=== PATIENT | male | born 1965 | race Caucasian/White ===

== ENCOUNTER 2020-06-07 23:42 | Emergency (ER) | payer MEDICARE, MEDICAID, SELFPAY ==
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
[2020-06-07 23:49] VITALS: BP 128/76; PULSE 70; RESP 16; TEMP 36.7; O2SAT 98; BMI 27.7
[2020-06-08] MEDS: Lidocaine HCl 2 % MPF 5 ML VIAL INFILTRATI (00:12)
== END 2020-06-08 00:25 | disposition home or self-care (01) ==
PROVIDERS: Emergency Provider Internal Medicine; PCP Internal Medicine
DX: S01.112A Laceration without foreign body of left eyelid and periocular area, initial encounter (principal); H57.12 Ocular pain, left eye; Y29.XXXA Contact with blunt object, undetermined intent, initial encounter; Y93.9 Activity, unspecified; Y92.9 Unspecified place or not applicable; Y99.9 Unspecified external cause status
CPT/HCPCS: 12013; 99284

== ENCOUNTER 2020-06-18 13:01 | Emergency (ER) | payer MEDICARE, MEDICAID, SELFPAY ==
[2020-06-18 13:18] VITALS: BP 124/73; PULSE 73; RESP 16; TEMP 36.4; O2SAT 100; BMI 31.8
--- NOTE | 2020-06-18 13:39 | ED_ITS ---
HPI - Wound/Laceration General Chief Complaint: Wound/Laceration Stated Complaint: SUTURE REMOVAL Time Seen by Provider: 06/18/20 13:38 History of Present Illness HPI narrative: Patient is here for suture removal after left eyebrow laceration sustained 10 days ago and sutured here He has no other complaint, no pain no redness no concern for wound infection Related Data Allergies Allergy/AdvReac Type Severity Reaction Status Date / Time No Known Allergies Allergy Verified 06/07/20 23:48 Review of Systems Review of Systems: No fever no chills no discharge from the wound no redness no body aches, no rash Yes all other systems are reviewed and are negative [facility] Past Medical History Attestation statement: The following information was validated with the patient. [facility] Narrative: No relevant medical history Source: nursing notes reviewed Social History Social History Smoking Status: Former smoker Advance Directives: No Advance Directives Information Provided: No Physical Exam Vital Signs: Vital Signs: Last Vital Signs Temp 97.6 F 06/18/20 13:18 Pulse 73 06/18/20 13:18 Resp 16 06/18/20 13:18 BP 124/73 06/18/20 13:18 Pulse Ox 100 06/18/20 13:18 Body Mass Index 31.8 Patient is A&O x3 comfortable facial exam shows [address] in left eyebrow with no surrounding erythema no swelling no tenderness no discharge no evidence of infection Neck is supple Respiratory no acute distress Extremities for range of motion x4 Neuro no focal deficit Course Course Course Narrative: The 5 sutures of the left eyebrow laceration were removed without complication Discharge Plan Discharge Clinical Impression: Encounter for removal of sutures Patient Disposition: Home, Self-Care Additional Instructions: No sign any infection, sutures removed were removed Return any concerns
== END 2020-06-18 13:45 | disposition home or self-care (01) ==
LOC: HO.ED 13:47
PROVIDERS: Emergency Provider Emergency Medicine; PCP Internal Medicine
DX: Z48.02 Encounter for removal of sutures (principal)
CPT/HCPCS: 99283

== ENCOUNTER 2020-08-09 17:08 | Inpatient (IN) | payer MEDICARE, MEDICAID, SELFPAY ==
--- NOTE | 2020-08-09 17:14 | ED.PSYCH ---
HPI - Psych General Chief Complaint: Psychiatric Symptoms Stated Complaint: CRISIS,SECTION 12,[employer]M [employer] @ THIS TIME Time Seen by Provider: 08/09/20 17:13 Source: patient and EMS Mode of arrival: EMS History of Present Illness HPI Narrative: 55-year-old male with a past medical history agoraphobia, anemia, anxiety, bipolar, hypertension, schizophrenia, hernia, brought to the ED [facility] for medication noncompliance. Patient reports he sometimes takes his medications and sometimes does not due to becoming mad/agitated x 11 days. States he does not want go back to his current prison. Denies SI/HI, auditory or visual hallucinations. Denies EtOH or drug use, cough, chest pain, abdominal pain, nausea/vomiting, COVID-19 exposure Related Data Home Medications Medication Instructions Recorded Confirmed ascorbic acid (vitamin C) [Vitamin 250 mg PO BID 08/09/20 08/09/20 C] cyanocobalamin (vitamin B-12) 1 ml IM QMONTH 08/09/20 08/09/20 ferrous sulfate 1 tab PO BID 08/09/20 08/09/20 multivitamin,[id number] 1 tab PO DAILY 08/09/20 08/09/20 [Therems-M] olanzapine 1 tab PO DAILY@0730 08/09/20 08/09/20 pantoprazole 40 mg PO BID 08/09/20 08/09/20 trazodone 1 tab PO BEDTIME 08/09/20 08/09/20 valproic acid (as sodium salt) 750 mg PO BID 08/09/20 08/09/20 Allergies Allergy/AdvReac Type Severity Reaction Status Date / Time No Known Allergies Allergy Verified 06/07/20 23:48 Review of Systems Review of Systems: Constitutional: No Fever, No Chills ENT/Mouth: No Nasal Congestion, No Sinus Pain Cardiovascular: No Chest Pain, No SOB Respiratory: No Cough, No Sputum Gastrointestinal: No Nausea, No Vomiting, No Diarrhea, No Constipation, No Abdominal pain Musculoskeletal: No joint pain, No Myalgias, No Joint Swelling Skin: No Skin Lesions, No rash Psych: No Anxiety/Panic, No Depression, No SI/HI/AH/VH, No Social Issues Yes all other systems are reviewed and are negative [facility] Past Medical History Attestation statement: The following information was validated with the patient. Medical History (Updated 08/09/20 @ 22:22 by RIZWAN Carmichael) Agoraphobia Anemia Anxiety Bipolar 1 disorder Hernia, paraesophageal Hypertension Panic Schizophrenia Social History Social History Smoking Status: Unknown if ever smoked Use of substances other than those prescribed or required for medical reasons: No Advance Directives: No Advance Directives Information Provided: Yes Physical Exam Vital Signs: Vital Signs: Last Vital Signs Temp 98.1 F 08/09/20 21:02 Pulse 89 08/09/20 21:02 Resp 18 08/09/20 21:02 BP 105/76 08/09/20 21:02 Pulse Ox 95 08/09/20 21:02 Body Mass Index 22.8 Const: General: cooperative, healthy appearing and comfortable Orientation/consciousness: patient oriented x3 Limitations: no limitations HENMT: Head: Yes normal to inspection Ears: hearing grossly normal bilaterally General nose exam: Normal external nose present Face and sinus: Yes normal facial exam Eyes: General: appearance normal, both eyes and all related structures EOM: EOMs intact bilaterally Neck: Neck: Yes normal visual inspection and Yes no meningeal signs Resp: Effort & Inspection: normal respiratory effort Auscultation: clear to auscultation bilaterally, no crackles, no rales, no rhonchi and no wheezes Cardio: Rate: regular rate Heart sounds: S1 normal heart sound present and S2 normal heart sound present GI: Other: Multiple old abdominal surgical scars noted Inspection: Yes normal to inspection Palpation (GI): Soft to palpation, nontender, no guarding, not rigid and Hernia present ventral Skin: Rashes: no rashes Wounds: no wounds Neuro: General: patient oriented x3 and no meningeal signs Gait exam (Neuro): Normal gait present Extrem: General: Yes normal to inspection Course Course Course Narrative: Labs notable for undetectable valproic acid level. Home dose of typical ordered. Labs otherwise unremarkable Patient is medically cleared for [facility] evaluation 0200-- ED care transferred to Dr. Porter pending [facility] eval MDM - Psych MDM Narrative Medical decision making narrative: 55-year-old male with a past medical history agoraphobia, anemia, anxiety, bipolar, hypertension, schizophrenia, hernia, brought to the ED [facility] for medication noncompliance. On exam VSS, NAD/well-appearing, patient, cooperative at present. Concern for medication noncompliance Plan: Labs, BROWNING, [facility]N consult Lab Data Result diagrams: 08/09/20 18:39 08/09/20 18:39 Labs: Lab Results 08/09/20 08/09/20 08/09/20 Range/Units 17:37 18:39 18:39 WBC 7.2 (4.8-10.8) X10*3/uL RBC 4.28 L (4.60-5.80) X10*6/uL Hgb 13.1 L (14.0-18.0) g/dl Hct 40.1 L (42-52) % MCV 93.7 (80-98) fL MCH 30.6 (27.0-33.0) pg MCHC 32.7 (31.0-36.0) g/dl RDW 15.2 (11.0-16.0) % Plt Count 277 (160-400) X10*3/uL MPV 9.8 (9.4-12.4) fL Immature Gran % (Auto) 0.3 (0.0-0.4) % Neut % (Auto) 71.4 (45-73) % Lymph % (Auto) 21.2 (20-40) % [place] % (Auto) 5.8 (2-11) % Eos % (Auto) 0.7 (0-4) % Baso % (Auto) 0.6 (0-2) % Lymph # (Auto) 1.5 (1.2-4.9) X10*3/uL [place] # (Auto) 0.4 (0.1-1.2) X10*3/uL Eos # (Auto) 0.1 (0.0-0.4) X10*3/uL Baso # (Auto) 0.0 (0.0-0.2) X10*3/uL Abs Immat Gran (auto) 0.02 (0.00-0.03) X10*3/uL Absolute Neuts (auto) 5.1 (2.0-8.3) X10*3/uL Absolute Nucleated RBC 0.000 (0.0-0.012) X10*3/uL Nucleated RBC % (auto) 0.0 (0.0-0.2) /100WBC Sodium 141 (135-145) mmol/L Potassium 3.5 (3.3-5.1) mmol/l Chloride 104 (96-108) mmol/L Carbon Dioxide 26 (22-29) mmol/L Anion Gap 15 (12-20) BUN 15 (9-16) mg/dL Creatinine 0.75 (0.5-1.4) mg/dL Estim Creat Clear Calc 74.2 Estimated GFR > 60 Random Glucose 122 H (60-115) mg/dL Calcium 9.0 (8.4-10.2) mg/dL Total Bilirubin (0.0-1.0) mg/dL Direct Bilirubin (0.0-0.5) mg/dL AST (5-37) U/L ALT (0-40) U/L Alkaline Phosphatase (39-117) U/L Total Protein (6.5-8.0) g/dL Albumin (3.5-5.0) g/dL Urine Opiates Screen Not Detected (Not Detect) Ur Barbiturates Screen Not Detected (Not Detect) Valproic Acid < 2.0 L (50.0-100.0) mcg/mL Ur Phencyclidine Scrn Not Detected (Not Detect) Ur Amphetamines Screen Not Detected (Not Detect) U Benzodiazepines Scrn Not Detected (Not Detect) Urine Cocaine Screen Not Detected (Not Detect) U Marijuana (THC) Screen Not Detected (Not Detect) 08/09/20 Range/Units 18:39 WBC (4.8-10.8) X10*3/uL RBC (4.60-5.80) X10*6/uL Hgb (14.0-18.0) g/dl Hct (42-52) % MCV (80-98) fL MCH (27.0-33.0) pg MCHC (31.0-36.0) g/dl RDW (11.0-16.0) % Plt Count (160-400) X10*3/uL MPV (9.4-12.4) fL Immature Gran % (Auto) (0.0-0.4) % Neut % (Auto) (45-73) % Lymph % (Auto) (20-40) % [place] % (Auto) (2-11) % Eos % (Auto) (0-4) % Baso % (Auto) (0-2) % Lymph # (Auto) (1.2-4.9) X10*3/uL [place] # (Auto) (0.1-1.2) X10*3/uL Eos # (Auto) (0.0-0.4) X10*3/uL Baso # (Auto) (0.0-0.2) X10*3/uL Abs Immat Gran (auto) (0.00-0.03) X10*3/uL Absolute Neuts (auto) (2.0-8.3) X10*3/uL Absolute Nucleated RBC (0.0-0.012) X10*3/uL Nucleated RBC % (auto) (0.0-0.2) /100WBC Sodium (135-145) mmol/L Potassium (3.3-5.1) mmol/l Chloride (96-108) mmol/L Carbon Dioxide (22-29) mmol/L Anion Gap (12-20) BUN (9-16) mg/dL Creatinine (0.5-1.4) mg/dL Estim Creat Clear Calc Estimated GFR Random Glucose (60-115) mg/dL Calcium (8.4-10.2) mg/dL Total Bilirubin 0.2 (0.0-1.0) mg/dL Direct Bilirubin < 0.2 (0.0-0.5) mg/dL AST 28 (5-37) U/L ALT 30 (0-40) U/L Alkaline Phosphatase 102 (39-117) U/L Total Protein 7.4 (6.5-8.0) g/dL Albumin 4.6 (3.5-5.0) g/dL Urine Opiates Screen (Not Detect) Ur Barbiturates Screen (Not Detect) Valproic Acid (50.0-100.0) mcg/mL Ur Phencyclidine Scrn (Not Detect) Ur Amphetamines Screen (Not Detect) U Benzodiazepines Scrn (Not Detect) Urine Cocaine Screen (Not Detect) U Marijuana (THC) Screen (Not Detect) Discharge Plan Discharge Clinical Impression: At risk for medication noncompliance Prescriptions: No Action ascorbic acid (vitamin C) [Vitamin C] 500 mg tablet 250 mg PO BID RF: 0 trazodone 100 mg tablet 1 tab PO BEDTIME RF: 0 valproic acid (as sodium salt) 250 mg/5 mL solution 750 mg PO BID RF: 0 pantoprazole 40 mg tablet,delayed release (DR/EC) 40 mg PO BID RF: 0 ferrous sulfate 325 mg (65 mg iron) tablet 1 tab PO BID RF: 0 olanzapine 10 mg tablet,disintegrating 1 tab PO DAILY@0730 RF: 0 cyanocobalamin (vitamin B-12) 1,000 mcg/mL solution 1 ml IM QMONTH RF: 0 Therems-M 27-0.4 mg tablet 1 tab PO DAILY RF: 0
--- NOTE | 2020-08-09 17:20 | PC.NURSE ---
Pt arrived via EMS, cooperative w/ changeover. Storage Receipt Poster called.
[2020-08-09 17:22] VITALS: BP 142/75; PULSE 75; RESP 20; TEMP 36.6; O2SAT 95
--- NOTE | 2020-08-09 17:26 | PC.NURSE ---
Halfway:[phone] Pinky Barrios planning supervisor [address]
--- NOTE | 2020-08-09 18:04 | PC.NURSE ---
Pt evaluated w/ provider and translator and interpreter present.
[2020-08-09 18:06] VITALS: BP 142/75; PULSE 75; RESP 20; TEMP 36.6; O2SAT 95; BMI 22.8
--- NOTE | 2020-08-09 18:17 | PC.NURSE ---
Pt evaluated w/ nematologist present. Pt denies SI/HI, denies AH/VH. States he has at times not taken medications in [facility], states he would be willing to take here but states that he does not want to return to half-way, no reason specified. Pt ate dinner, crisis process explained to pt, pt oriented to pod.
[2020-08-09 18:19] LABS: Amphetamine Screen Urine Not Detected (Not Detect); Barbiturates, Urine Not Detected (Not Detect); Benzodiazepines Screen Urine Not Detected (Not Detect); Cannabinoid Screen Urine Not Detected (Not Detect); Cocaine Screen Urine Not Detected (Not Detect); Opiate Screen Urine Not Detected (Not Detect); Phencyclidine Screen Urine Not Detected (Not Detect)
[2020-08-09 18:43] LABS: MANUAL DIFF FLAG NO
[2020-08-09 18:45] LABS: Basophils Percent Auto 0.6 % (0-2); Eosinophils Absolute Auto 0.1 X10*3/uL (0.0-0.4); Eosinophils Percent Auto 0.7 % (0-4); Hematocrit 40.1 % (42-52); Hemoglobin 13.1 g/dl (14.0-18.0); Imm Gran Abs Auto 0.02 X10*3/uL (0.00-0.03); Imm Gran Pct Auto 0.3 % (0.0-0.4); Lymphocytes Absolute Auto 1.5 X10*3/uL (1.2-4.9); Lymphocytes Percent Auto 21.2 % (20-40); Mean Corpuscular HGB Conc 32.7 g/dl (31.0-36.0); Mean Corpuscular Hemoglobin 30.6 pg (27.0-33.0); Mean Corpuscular Volume 93.7 fL (80-98); Mean Platelet Volume 9.8 fL (9.4-12.4); Monocytes Absolute Auto 0.4 X10*3/uL (0.1-1.2); Monocytes Percent Auto 5.8 % (2-11); Neutrophils Absolute Auto 5.1 X10*3/uL (2.0-8.3); Neutrophils Percent Auto 71.4 % (45-73); Platelet Count 277 X10*3/uL (160-400); Red Blood Count 4.28 X10*6/uL (4.60-5.80); Red Cell Distribution Width 15.2 % (11.0-16.0); White Blood Count 7.2 X10*3/uL (4.8-10.8)
[2020-08-09 19:19] LABS: Valproate < 2.0 mcg/mL (50.0-100.0)
[2020-08-09 19:24] LABS: Alanine Aminotransferase 30 U/L (0-40); Albumin Level 4.6 g/dL (3.5-5.0); Alkaline Phosphatase 102 U/L (39-117); Aspartate Amino Transferase 28 U/L (5-37); Bilirubin Direct < 0.2 mg/dL (0.0-0.5); Bilirubin Total 0.2 mg/dL (0.0-1.0); Total Protein 7.4 g/dL (6.5-8.0)
--- NOTE | 2020-08-09 20:13 | PC.NURSE ---
Medication reconciliation completed/provider notified/pending emar update, patient is in hallway drinking his coffee, denied distress at this time, will continue to monitor?
[2020-08-09] MEDS: OLANZapine ODT 10 MG TAB.RAPDIS TRANSLINGU (20:18)
[2020-08-09 20:53] LABS: Anion Gap 15 (12-20); Blood Urea Nitrogen 15 mg/dL (9-16); Carbon Dioxide 26 mmol/L (22-29); Chloride 104 mmol/L (96-108); Creatinine Clr Calc Pharmacy 74.2; Estimated Glomerular Filt Rate > 60; Glucose Random 122 mg/dL (60-115); Potassium 3.5 mmol/l (3.3-5.1); Sodium 141 mmol/L (135-145)
--- NOTE | 2020-08-09 20:56 | PC.NURSE ---
ABBIE faxed/called/spoke with Stan/confirmed receipt of referral?no ETA at this time, patient just showered, wants to take his medication at 2130, currently in milieu watching TV, will continue to monitor.
[2020-08-09 21:02] VITALS: BP 105/76; PULSE 89; RESP 18; TEMP 36.7; O2SAT 95
[2020-08-09] MEDS: Ferrous Sulfate 324 MG TABLET.DR PO (21:35)
[2020-08-09] MEDS: traZODone HCL 100 MG TABLET PO (21:36)
[2020-08-09] MEDS: Ascorbic Acid 500 MG TABLET 250 MG PO (21:36)
--- NOTE | 2020-08-09 21:43 | PC.NURSE ---
Patient compliant with his HS PO medication, no distress reported, back to bed, seems resting, will continue to monitor.
[2020-08-09 23:13] VITALS: RESP 18
--- NOTE | 2020-08-10 01:26 | PC.NURSE ---
BHN completed assessment with patient, since patient is not suicidal/homicidal, patient's disposition is discharge in the morning, patient's apartment issue will be addressed to [facility] by [facility] in the morning, patient and provider both aware. Patient currently appears sleeping, no distress observed/reported, will continue to monitor.
--- NOTE | 2020-08-10 01:51 | PC.NURSE ---
Patient assessment completed by [facility], patient was compliant in the beginning but got agitated as assessment progressed per N, based on the current behavioral presentation and the information provided by the senior living, [facility] clinician concluded that patient need in-patient level of care at this time and patient's disposition is section 12, in patient bed search, provider and patient aware, patient currently in bed appears sleeping, no distress reported, will continue to monitor.
[2020-08-10] MEDS: Omeprazole 20 MG CAPSULE.DR PO ×2 (06:08→17:27)
[2020-08-10 06:23] VITALS: BP 114/66; PULSE 111; RESP 18; TEMP 36.8; O2SAT 97
--- NOTE | 2020-08-10 07:03 | PC.NURSE ---
Report received. Pt currently sleeping, respirations even and unlabored, in no apparent distress. Pt is inpatient bedsearch.
[2020-08-10] MEDS: Ascorbic Acid 500 MG TABLET 250 MG PO ×2 (08:34→21:32)
[2020-08-10] MEDS: OLANZapine ODT 10 MG TAB.RAPDIS TRANSLINGU (08:34)
[2020-08-10] MEDS: Ferrous Sulfate 324 MG TABLET.DR PO ×2 (08:34→21:33)
[2020-08-10 09:06] VITALS: BP 101/58; PULSE 102; RESP 18; TEMP 36.8; O2SAT 97
[2020-08-10 16:56] VITALS: BP 118/66; PULSE 74; RESP 20; TEMP 36.3; O2SAT 98
--- NOTE | 2020-08-10 19:32 | PC.NURSE ---
Report received. PT came to nurse's station and asked to take a shower. Calm and cooperative. PT is inpatient bed search.
[2020-08-10 20:04] VITALS: BP 101/68; PULSE 82; RESP 17; TEMP 36.1; O2SAT 97
[2020-08-10] MEDS: traZODone HCL 100 MG TABLET PO (21:33)
[2020-08-11] VITALS: BP 104/67; PULSE 88; RESP 18; TEMP 37.2; O2SAT 96
--- NOTE | 2020-08-11 | ECG_ITS ---
Test Reason : CARDIAC HISTORY Blood Pressure : / mmHG Vent. Rate : 080 BPM Atrial Rate : 080 BPM P-R Int : 142 ms QRS Dur : 084 ms QT Int : 380 ms P-R-T Axes : 072 082 055 degrees QTc Int : 438 ms Normal sinus rhythm Voltage criteria for left ventricular hypertrophy Abnormal ECG When compared with ECG of 12-MAY-2014 14:58, Questionable change in QRS axis Nonspecific T wave abnormality no longer evident in Lateral leads Referred By: Semaj Maldonado Electronically Signed By:Jose Rojo
--- NOTE | 2020-08-11 05:35 | PC.NURSE ---
PT woke up and came to the nurse's station to ask for a drink. Calm and cooperative. No other complaints at this time.
[2020-08-11 06:00] VITALS: BP 101/60; PULSE 125; RESP 20; TEMP 36.8; O2SAT 95
[2020-08-11] MEDS: Omeprazole 20 MG CAPSULE.DR PO ×2 (06:32→17:08)
--- NOTE | 2020-08-11 07:10 | PC.NURSE ---
Report received. PT calm and cooperative, denies complaints at this time. Pt is inpatient bedsearch.
[2020-08-11 07:56] VITALS: PULSE 103
[2020-08-11] MEDS: Ferrous Sulfate 324 MG TABLET.DR PO ×2 (08:51→21:27)
[2020-08-11] MEDS: OLANZapine ODT 10 MG TAB.RAPDIS TRANSLINGU (08:51)
[2020-08-11] MEDS: Ascorbic Acid 500 MG TABLET 250 MG PO ×2 (08:52→21:27)
[2020-08-11 09:07] VITALS: BP 129/74; PULSE 87; RESP 16; TEMP 37; O2SAT 99
[2020-08-11 13:28] LABS: COVID-19 Test Negative (Negative)
[2020-08-11 17:12] VITALS: BP 99/69; PULSE 89; RESP 18; TEMP 36.2; O2SAT 98
--- NOTE | 2020-08-11 17:44 | PC.NURSE ---
DINNER TRAY GIVEN.
--- NOTE | 2020-08-11 19:32 | PC.NURSE ---
Report received. PT is sleeping in his room. Breathing is even and unlabored. PT is being transferred to [address]
[2020-08-11] MEDS: traZODone HCL 100 MG TABLET PO (21:27)
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
[2020-08-12 06:00] VITALS: BP 115/68; PULSE 106; TEMP 36.9
[2020-08-12] MEDS: Ferrous Sulfate 324 MG TABLET.DR PO ×2 (09:30→21:50)
[2020-08-12] MEDS: Omeprazole 20 MG CAPSULE.DR PO ×2 (09:30→20:43)
[2020-08-12] MEDS: Ascorbic Acid 500 MG TABLET 250 MG PO ×2 (09:30→21:49)
[2020-08-12] MEDS: OLANZapine ODT 10 MG TAB.RAPDIS TRANSLINGU (09:30)
--- NOTE | 2020-08-12 09:45 | PC.NURSE ---
PT SAYS HE DOES NOT AND HAS NOT EVER SMOKED.
--- NOTE | 2020-08-12 17:50 | HO.PSYADMNOT ---
HPI Chief Complaint: Acute psychosis Sources of Information: patient interviewed, chart reviewed and crisis/core team assessment reviewed HPI Narrative: Pt is a 55 yo Georgian speaking man (who requires straw hat brusher) sent to ER via Section XII from his snf as he has been off medications for ~11 days reported by his team and has become unmodulated with inappropriate behaviors sexually and agitation, aggression, anger. Pt has signed a CV, however, as he has a guardian in place we will maintain 12B until we hear from his guardian. Pt is followed by [facility], with a history of Schizophrenia. On admission, VPA level <2 on 750 mg bid. Past Psychiatric History: [facility] snf Medical Evaluation Reviewed: No [facility] Medical History (Updated 08/12/20 @ 18:21 by Laurie Cisneros APRN) Agoraphobia Anemia Anxiety Bipolar 1 disorder Hernia, paraesophageal Hypertension Panic Schizophrenia Schizophrenia Family History: pt did not give history Social History: lives in a snf. Brother is his guardian Substance History: Pt reports a history of alcohol abuse- nothing current however Trauma History: Not asked in initial eval. Diagnostics Vital Signs (24Hr): Vital Signs - 24 hr 08/12/20 06:00 Temperature 98.5 F Pulse Rate 106 H Blood Pressure 115/68 Body Mass Index 22.8 Labs Results: 08/09/20 18:39 08/09/20 18:39 Labs: Laboratory Results - last 48 hr 08/11/20 12:33 COVID-19 ([facility]) Negative COVID-19 Clin Com See Note Meds/Allergies Meds Home Medications Acetaminophen (Acetaminophen 325 Mg Tablet) 650 mg PO Q6H PRN PRN Reason: Headache/Pain Mild Scale (1-3) Al Hydroxide/Mg Hydroxide (Magnesium Hydrox/Alum Hydrox 30 Ml Oral.Susp) 30 ml PO Q6H PRN PRN Reason: Heartburn/Nausea Ascorbic Acid (Ascorbic Acid 500 Mg Tablet) 250 mg PO BID [facility] Last Admin: 08/12/20 09:30 Dose: 250 mg Documented by: Cyanocobalamin (Cyanocobalamin (Vitamin B-12) 1,000 Mcg/Ml Vial) 1,000 mcg IM Q30D [facility] Ferrous Sulfate (Ferrous Sulfate 324 Mg Tablet.) 324 mg PO BID [facility] Last Admin: 08/12/20 09:30 Dose: 324 mg Documented by: Haloperidol (Haloperidol 5 Mg Tablet) 5 mg PO RQ4H PRN PRN Reason: agitation Hydroxyzine HCl (Hydroxyzine Hcl 25 Mg Tablet) 25 mg PO BEDTIME PRN PRN Reason: Anxiety Lorazepam (Lorazepam 1 Mg Tablet) 2 mg PO Q4H PRN PRN Reason: agitation Magnesium Hydroxide (Milk Of Magnesia 30 Ml Oral.Susp) 30 ml PO DAILY PRN PRN Reason: Constipation Multivitamins/Minerals (Multivitamin With Minerals Tablet) 1 tab PO DAILY [facility] Last Admin: 08/12/20 09:30 Dose: 1 tab Documented by: Nicotine Polacrilex (Nicotine Polacrilex 2 Mg Gum) 4 mg BUCCAL Q2H PRN PRN Reason: Nicotine Cravings Olanzapine (Olanzapine Odt 10 Mg Tab.Rapdis) 10 mg TRANSLINGU DAILY@0730 [facility] Last Admin: 08/12/20 09:30 Dose: 10 mg Documented by: Omeprazole (Omeprazole 20 Mg Capsule.Dr) 20 mg PO BID@0630,1630 [facility] Last Admin: 08/12/20 09:30 Dose: 20 mg Documented by: Trazodone HCl (Trazodone Hcl 100 Mg Tablet) 100 mg PO BEDTIME [facility] Last Admin: 08/11/20 21:27 Dose: 100 mg Documented by: Valproic Acid (Valproic Acid (As Sodium Salt) 250 Mg/5 Ml Solution) 750 mg PO BID [facility] Last Admin: 08/11/20 21:27 Dose: 750 mg Documented by: Allergies Allergies Allergy/AdvReac Type Severity Reaction Status Date / Time No Known Allergies Allergy Verified 06/07/20 23:48 Mental Status Exam Mental Status Exam Patient Appearance: Well Grooomed Patient Orientation: Person, Place and Situation Level of Consciousness: Awake and Alert Patient Behavior: Appropriate, Talkative, Hyperactive, Cooperative, Anxious, Distractible and Confused Mood Description: Suspicious, Anxious and Labile Affect Description: Labile Patient Cognition Impaired: Yes Ability to Follow Directions: Fair Speech Pattern: Spontaneous Speech, Rambling, Rapid, Excessive, Animated and Pressured Hallucinations: None Delusions: Paranoid Ideation Thought Process: Racing and Distracted Thought Content: positive for Racing Depressive Symptoms: Increased Irritability Abnormal Motor Activity Signs and Symptoms: Restlessness Judgement: Poor Assessment & Plan Assessment & Plan (1) Schizophrenia: Status: Acute Code(s): F20.9 - Schizophrenia, unspecified Assessment and Plan: continue current regime Pt is anemic HGB 13.1 HCT 40.1. Will discuss change of Depakote with guardian and assess if Chip's is in place. Call to Rad Lim [phone]. No answer. Labs. Patient educated on: medication risk/benefits and medical condition Informed Consent: does not understand and further education needed Reason for continued inpatient stay Substantial Risk for: harm to others, rapid decompensation and med/psych decompensation
[2020-08-12 18:00] VITALS: BP 112/76; PULSE 101; TEMP 37
[2020-08-12] MEDS: traZODone HCL 100 MG TABLET PO (21:49)
[2020-08-13 06:00] VITALS: BP 139/85; PULSE 92; TEMP 36.2; O2SAT 98
[2020-08-13] MEDS: Ascorbic Acid 500 MG TABLET 250 MG PO ×2 (09:35→20:26)
[2020-08-13] MEDS: Omeprazole 20 MG CAPSULE.DR PO ×2 (09:35→17:46)
[2020-08-13] MEDS: Ferrous Sulfate 324 MG TABLET.DR PO ×2 (09:36→20:26)
[2020-08-13] MEDS: OLANZapine ODT 10 MG TAB.RAPDIS TRANSLINGU (09:36)
[2020-08-13 16:54] VITALS: BP 124/69; PULSE 81; TEMP 36.5
--- NOTE | 2020-08-13 17:56 | HO.PSYCHPN ---
Subjective Subjective Date of Service: 08/13/20 Reason For Visit: Acute psychosis Interim History: Well engaged, interpretor present, feeling ready to return to his residence, states he enjoys milieu. Denies issues with return to medication regime. States he feels happy this evening. Medication Compliance: Yes Side effects from medications: No Attending Groups: No Review of Systems Review of Systems Yes all other systems are reviewed and are negative (pt denies symptoms, concerns) Psychiatric: Reports no additional psychiatric complaints Mental Status Exam Mental Status Exam Patient Appearance: Well Grooomed Patient Orientation: Person, Place and Situation Level of Consciousness: Alert Patient Behavior: Appropriate, Talkative and Cooperative Mood Description: Calm, Happy and Apprehensive Affect Description: Calm Patient Cognition Impaired: Yes Ability to Follow Directions: Excellent Speech Pattern: Spontaneous Speech Memory Description: Intact Hallucinations: None Delusions: Not Present Thought Process: Goal Oriented Thought Content: positive for [place] and positive for Goal Oriented Judgement: Fair Diagnostics Vital Signs (24Hr): Vital Signs - 24 hr 08/12/20 18:00 08/13/20 06:00 08/13/20 16:54 Temperature 98.6 F 97.1 F 97.7 F Pulse Rate 101 H 92 81 Blood Pressure 112/76 139/85 124/69 Pulse Oximetry 98 Body Mass Index 20.0 Labs Results: 08/09/20 18:39 08/09/20 18:39 Medications Medications Current Medications Generic Name Dose Route Start Last Admin Trade Name Freq PRN Reason Stop Dose Admin Acetaminophen 650 mg 08/11/20 21:31 Acetaminophen 325 Mg Tablet PO Q6H PRN Headache/Pain Mild Scale (1-3) Al Hydroxide/Mg Hydroxide 30 ml 08/11/20 21:31 Magnesium Hydrox/Alum Hydrox 30 Ml Oral.Susp PO Q6H PRN Heartburn/Nausea Ascorbic Acid 250 mg 08/09/20 21:00 08/13/20 09:35 Ascorbic Acid 500 Mg Tablet PO 250 mg BID THOMPSON Administration Cyanocobalamin 1,000 mcg 08/16/20 09:00 Cyanocobalamin (Vitamin B-12) 1,000 Mcg/Ml Vial IM Q30D THOMPSON Ferrous Sulfate 324 mg 08/09/20 21:00 08/13/20 09:36 Ferrous Sulfate 324 Mg Tablet. PO 324 mg BID THOMPSON Administration Haloperidol 5 mg 08/11/20 21:31 Haloperidol 5 Mg Tablet PO RQ4H PRN agitation Hydroxyzine HCl 25 mg 08/11/20 21:31 Hydroxyzine Hcl 25 Mg Tablet PO BEDTIME PRN Anxiety Lorazepam 2 mg 08/11/20 21:31 Lorazepam 1 Mg Tablet PO Q4H PRN agitation Magnesium Hydroxide 30 ml 08/11/20 21:31 Milk Of Magnesia 30 Ml Oral.Susp PO DAILY PRN Constipation Multivitamins/Minerals 1 tab 08/10/20 09:00 08/13/20 09:35 Multivitamin With Minerals Tablet PO 1 tab DAILY THOMPSON Administration Nicotine Polacrilex 4 mg 08/11/20 21:31 Nicotine Polacrilex 2 Mg Gum BUCCAL Q2H PRN Nicotine Cravings Olanzapine 10 mg 08/09/20 20:05 08/13/20 09:36 Olanzapine Odt 10 Mg Tab.Rapdis TRANSLINGU 10 mg DAILY@0730 THOMPSON Administration Omeprazole 20 mg 08/10/20 06:30 08/13/20 17:46 Omeprazole 20 Mg Capsule.Dr PO 20 mg BID@0630,1630 THOMPSON Administration Trazodone HCl 100 mg 08/09/20 21:00 08/12/20 21:49 Trazodone Hcl 100 Mg Tablet PO 100 mg BEDTIME THOMPSON Administration Valproic Acid 750 mg 08/09/20 21:00 08/11/20 21:27 Valproic Acid (As Sodium Salt) 250 Mg/5 Ml Solution PO 750 mg BID THOMPSON Administration Allergies Allergies Allergy/AdvReac Type Severity Reaction Status Date / Time No Known Allergies Allergy Verified 06/07/20 23:48 Assessment & Plan Assessment & Plan (1) Schizophrenia: Status: Acute Code(s): F20.9 - Schizophrenia, unspecified Assessment and Plan: Plan for discharge 08/14/20. Greater than 50% of the session was spent on counseling and/or coordination of care
[2020-08-13] MEDS: traZODone HCL 100 MG TABLET PO (20:26)
[2020-08-14 06:00] VITALS: BP 123/67; PULSE 109; TEMP 36.3; O2SAT 98
[2020-08-14] MEDS: Omeprazole 20 MG CAPSULE.DR PO (06:39)
[2020-08-14] MEDS: Ascorbic Acid 500 MG TABLET 250 MG PO (09:46)
[2020-08-14] MEDS: OLANZapine ODT 10 MG TAB.RAPDIS TRANSLINGU (09:46)
[2020-08-14] MEDS: Ferrous Sulfate 324 MG TABLET.DR PO (09:46)
--- NOTE | 2020-08-14 16:56 | PM.PSYDC ---
DS: Providers Provider Date of Service: 08/30/20 Date of admission: 08/11/20 20:30 Primary care physician: Dr. Mario DS: Diagnosis Discharge Diagnosis (1) Schizophrenia: Status: Acute Problem details: Pt has a history of schizophrenia. He is followed by [facility], has a guardian and lives in a residential. [facility], pt stopped medications for approximately 11 days due to anger with an issue at the home. He was sent for admission via [facility]. DS: Medications Discharge Medications Home Medications: Home Medications Medication Instructions Recorded Confirmed cyanocobalamin (vitamin B-12) 1 ml IM QMONTH 08/09/20 08/09/20 Previous Rx's Medication Instructions Recorded Therems-M 1 tab PO DAILY #30 tab 08/14/20 ascorbic acid (vitamin C) [Vitamin 250 mg PO BID #60 tab 08/14/20 C] ferrous sulfate 1 tab PO BID #60 tab 08/14/20 olanzapine 1 tab PO DAILY@0730 #30 tab 08/14/20 pantoprazole 40 mg PO BID #60 tab 08/14/20 valproic acid (as sodium salt) 750 mg PO BID #1 ml 08/14/20 Discharge Plan Discharge Anticipated Discharge Date/Time: 08/14/20 11:00 Patient Disposition: Xfer Other Referrals: Brii Mario MD [Physician] - 08/20/20 9:30 am (via phone) Dain Antonio MD [Physician] - 08/25/20 11:00 am (Telehealth - you will receive a reminder call prior to the appointment and Dr. Antonio will call you at appointment time.) Discharge Medications: Continued cyanocobalamin (vitamin B-12) 1,000 mcg/mL solution 1 ml IM QMONTH RF: 0 ascorbic acid (vitamin C) [Vitamin C] 500 mg tablet 250 mg PO BID Qty: 60 RF: 0 valproic acid (as sodium salt) 250 mg/5 mL solution 750 mg PO BID Qty: 1 RF: 0 pantoprazole 40 mg tablet,delayed release (DR/EC) 40 mg PO BID Qty: 60 RF: 0 ferrous sulfate 325 mg (65 mg iron) tablet 1 tab PO BID Qty: 60 RF: 0 olanzapine 10 mg tablet,disintegrating 1 tab PO DAILY@0730 Qty: 30 RF: 0 Therems-M 27-0.4 mg tablet 1 tab PO DAILY Qty: 30 RF: 0 Discontinued trazodone 100 mg tablet 1 tab PO BEDTIME RF: 0 Discharge Orders: Discharge Order (Routine); Ordered 08/14/20 Ordered By: Laurie Cisneros Diet: advance to usual diet Activity on Discharge: As tolerated Stand Alone Forms: Community Support Discharge Date/Time: 08/14/20 11:00 Visit Report Forms: Patient Portal Discharge page Care Plan Goals: Mood Stability Compliance with medications Stable sleep, appetite Health Concerns: Anemia- Follow up with your primary care providers - Continue to take your supplement twice daily Plan of Treatment: Return to your residential program and plan of care. Follow up with your therapist, medicine provider and primary care providers as indicated Take your medications Mental Status Exam Mental Status Exam Patient Appearance: Well Grooomed Patient Orientation: Person, Place and Situation Level of Consciousness: Alert Patient Behavior: Appropriate Mood Description: Calm Affect Description: Calm Patient Cognition Impaired: Yes Ability to Follow Directions: Excellent Speech Pattern: Spontaneous Speech Memory Description: Intact Hallucinations: None Delusions: Not Present Thought Process: Goal Oriented Thought Content: positive for Intact and positive for Circumstantial Judgement: Good Data Data Completed and Pending Completed studies during hospitalization [Text1]: 08/09/20 08/09/20 08/09/20 17:37 18:39 18:39 WBC 7.2 RBC 4.28 L Hgb 13.1 L Hct 40.1 L MCV 93.7 MCH 30.6 MCHC 32.7 RDW 15.2 Plt Count 277 MPV 9.8 Immature Gran % (Auto) 0.3 Neut % (Auto) 71.4 Lymph % (Auto) 21.2 [place] % (Auto) 5.8 Eos % (Auto) 0.7 Baso % (Auto) 0.6 Lymph # (Auto) 1.5 [place] # (Auto) 0.4 Eos # (Auto) 0.1 Baso # (Auto) 0.0 Abs Immat Gran (auto) 0.02 Absolute Neuts (auto) 5.1 Absolute Nucleated RBC 0.000 Nucleated RBC % (auto) 0.0 Sodium 141 Potassium 3.5 Chloride 104 Carbon Dioxide 26 Anion Gap 15 BUN 15 Creatinine 0.75 Estim Creat Clear Calc 74.2 Estimated GFR > 60 Random Glucose 122 H Calcium 9.0 Total Bilirubin Direct Bilirubin AST ALT Alkaline Phosphatase Total Protein Albumin Urine Opiates Screen Not Detected Ur Barbiturates Screen Not Detected Valproic Acid < 2.0 L Ur Phencyclidine Scrn Not Detected Ur Amphetamines Screen Not Detected U Benzodiazepines Scrn Not Detected Urine Cocaine Screen Not Detected U Marijuana (THC) Screen Not Detected COVID-19 ([facility]) COVID-19 CE Interactive 08/09/20 08/11/20 18:39 12:33 WBC RBC Hgb Hct MCV MCH MCHC RDW Plt Count MPV Immature Gran % (Auto) Neut % (Auto) Lymph % (Auto) [place] % (Auto) Eos % (Auto) Baso % (Auto) Lymph # (Auto) [place] # (Auto) Eos # (Auto) Baso # (Auto) Abs Immat Gran (auto) Absolute Neuts (auto) Absolute Nucleated RBC Nucleated RBC % (auto) Sodium Potassium Chloride Carbon Dioxide Anion Gap BUN Creatinine Estim Creat Clear Calc Estimated GFR Random Glucose Calcium Total Bilirubin 0.2 Direct Bilirubin < 0.2 AST 28 ALT 30 Alkaline Phosphatase 102 Total Protein 7.4 Albumin 4.6 Urine Opiates Screen Ur Barbiturates Screen Valproic Acid Ur Phencyclidine Scrn Ur Amphetamines Screen U Benzodiazepines Scrn Urine Cocaine Screen U Marijuana (THC) Screen COVID-19 ([facility]) Negative COVID-19 Clin Com See Note DS: Summary Hospital Course Hospital Course: Pt stopped medications prior to admission for >10 days. He was admitted via a conditional voluntary, re-started his medication regime without side effects or symptoms and demonstrated no symptoms or behaviors of concern during his admission. He requested to return to his home and was discharged with psychiatric and medical follow up appointments within the week. Status at Discharge Cognitive/behavioral status at discharge: Alert, oriented. No behaviors of concern during admission. He was pleased to return home Functional status at discharge: independent ambulation Overall status at discharge: patient is back to baseline Time Spent with Patient Time attestation: Total time spent providing and/or coordinating discharge services: Time spent: Less than 30 minutes
== END 2020-08-14 11:00 | disposition other institution (70) | DRG 885 ==
LOC: HO.ED 18:09 → HO.PM5 08-11 21:05
PROVIDERS: Physician Assistant; Admitting Provider Psychiatry & Neurology Psychiatry; Emergency Provider Emergency Medicine; Visit Provider Psychiatry & Neurology Psychiatry
DX: F20.9 Schizophrenia, unspecified (principal); Z91.14 Patient's other noncompliance with medication regimen; Z20.828 Contact with and (suspected) exposure to other viral communicable diseases; Z79.899 Other long term (current) drug therapy
CPT/HCPCS: 36415; 80048; 80076; 80164; 80307; 85025; 87635; 90792; 93005; 99231; 99285

== ENCOUNTER 2023-11-23 09:53 | Outpatient (REF) | payer MEDICARE, MEDICAID, SELFPAY ==
--- NOTE | ~2023-11-23 | XR_ITS ---
EXAMINATION: XR CHEST CLINICAL INFORMATION: Loss of appetite COMPARISON: Chest radiograph 07/12/[address] abdomen pelvis 04/29/2017 TECHNIQUE: 2 views of the chest were obtained. FINDINGS: Heart size within normal limits. There is some chronic blunting of the left lateral costophrenic angle along with chronic medial left lower lobe atelectasis. Compared to the prior study from 07/12/2018 there is been no interval change. No acute infiltrates, pleural effusions or lung masses are seen there is no evidence of CHF or occult malignancy. XR/XR chest 2V IMPRESSION: No acute intrathoracic disease. Chronic changes left lung base.
[2023-11-23 11:33] LABS: MANUAL DIFF FLAG NO
[2023-11-23 11:36] LABS: Appearance Urine Clear; Color Urine Yellow; Glucose Urine UA Negative (Negative); Leukocyte Esterase Urine Negative (Negative); Nitrite Urine Negative (Negative); Urine Blood Negative (Negative); Urine Ketones Trace mg/dL (Negative); Urine Protein Negative (Neg-Trace)
[2023-11-23 11:40] LABS: Basophils Absolute Auto 0.1 X10*3/uL (0.0-0.2); Basophils Percent Auto 0.8 % (0-2); Eosinophils Percent Auto 0.5 % (0-4); Hematocrit 39.3 % (42.0-52.0); Hemoglobin 12.9 g/dl (14.0-18.0); Imm Gran Abs Auto 0.03 X10*3/uL (0.00-0.03); Imm Gran Pct Auto 0.4 % (0.0-0.4); Lymphocytes Absolute Auto 1.8 X10*3/uL (1.2-4.9); Lymphocytes Percent Auto 22.3 % (20-40); Mean Corpuscular HGB Conc 32.8 g/dl (31.0-36.0); Mean Corpuscular Hemoglobin 33.4 pg (27.0-33.0); Mean Corpuscular Volume 101.8 fL (80.0-98.0); Mean Platelet Volume 11.6 fL (9.4-12.4); Monocytes Absolute Auto 0.5 X10*3/uL (0.1-1.2); Monocytes Percent Auto 5.8 % (2-11); Neutrophils Absolute Auto 5.5 x10*3/uL (2.0-8.3); Neutrophils Percent Auto 70.2 % (45-73); Platelet Count 178 X10*3/uL (160-400); Red Blood Count 3.86 X10*6/uL (4.60-5.80); Red Cell Distribution Width 14.4 % (11.0-16.0); White Blood Count 7.9 X10*3/uL (4.8-10.8)
[2023-11-23 11:52] LABS: Bacteria Urine None Seen (None Seen); Hyaline Casts Urine 0-2 /LPF (0-2); RBC Urine 0-2 /HPF (0-2); Squamous Epithelial Cell Urine 0-2 /HPF (0-2); WBC Urine 0-5 /HPF (0-5)
[2023-11-23 12:14] LABS: Prostate Specific Antigen Scr 0.48 ng/mL (<0.05-4.0)
[2023-11-23 12:15] LABS: ~HepC Num1 0.11 S/CO (0.00-0.79); ~Hepatitis C Antibody Nonreactive (Nonreactive)
[2023-11-23 12:24] LABS: Alanine Aminotransferase 16 U/L (0-40); Albumin Level 3.9 g/dL (3.5-5.0); Alkaline Phosphatase 73 U/L (39-117); Anion Gap 10 (12-20); Aspartate Amino Transferase 25 U/L (5-37); Bilirubin Total 0.3 mg/dL (0.0-1.0); Blood Urea Nitrogen 14 mg/dL (9-16); Carbon Dioxide 33 mmol/L (22-29); Chloride 107 mmol/L (96-108); Estimated Glomerular Filt Rate > 60; Glucose Random 66 mg/dL (60-115); Potassium 4.5 mmol/L (3.3-5.1); Sodium 145 mmol/L (135-145); Thyroid Stimulating Hormone 0.99 uIU/mL (0.32-4.0); Total Protein 7.2 g/dL (6.5-8.0)
== END 2023-11-23 09:54 | disposition home or self-care (01) ==
LOC: HO.HHCL 09:53
PROVIDERS: Visit Provider Internal Medicine
DX: Z00.00 Encounter for general adult medical examination without abnormal findings (principal); Z12.5 Encounter for screening for malignant neoplasm of prostate; F20.9 Schizophrenia, unspecified; R63.0 Anorexia; R63.6 Underweight; Z68.1 Body mass index [BMI] 19.9 or less, adult
CPT/HCPCS: 36415; 71046; 80053; 81001; 84153; 84443; 85025; 86803

== ENCOUNTER 2024-04-04 11:50 | Outpatient (REF) | payer MEDICARE, MEDICAID, SELFPAY ==
[2024-04-04 14:02] LABS: Anion Gap 12 (12-20); Blood Urea Nitrogen 17 mg/dL (9-16); Calcium 8.9 mg/dL (8.4-10.2); Carbon Dioxide 32 mmol/L (22-29); Chloride 102 mmol/L (96-108); Estimated Glomerular Filt Rate > 60; Glucose Random 63 mg/dL (60-115); Iron 98 mcg/dL (45-160); Percent Iron Saturation 38 % (15-50); Potassium 3.9 mmol/L (3.3-5.1); Sodium 142 mmol/L (135-145); Total Iron Binding Capacity 258 mcg/dL (228-428); Unsaturated Iron Binding 160 ug/dL
[2024-04-04 14:03] LABS: Erythrocyte Sedimentation Rate 7 MM/HR (0-15)
[2024-04-04 14:17] LABS: Folate 12.9 ng/mL (> or = 4.0); Vitamin B12 > 2000 pg/mL (200-900)
[2024-04-04 14:35] LABS: Ferritin 1955 ng/mL (20-250)
[2024-04-10 12:53] LABS: Prot Elec - Albumin 3.8 g/dL (3.8-4.8); Prot Elec - Alpha1 0.2 g/dL (0.2-0.3); Prot Elec - Alpha2 0.6 g/dL (0.5-0.9); Prot Elec - Beta 1 0.4 g/dL (0.4-0.6); Prot Elec - Beta 2 0.4 g/dL (0.2-0.5); Prot Elec - Gamma 0.9 g/dL (0.8-1.7); Prot Elec - Total Protein 6.3 g/dL (6.1-8.1)
== END 2024-04-04 11:51 | disposition home or self-care (01) ==
LOC: HO.HHCL 11:50
PROVIDERS: Visit Provider Internal Medicine
DX: D64.9 Anemia, unspecified (principal)
CPT/HCPCS: 36415; 80048; 82607; 82728; 82746; 83540; 84165; 85652

== ENCOUNTER 2024-05-23 07:23 | Outpatient (REF) | payer MEDICARE, MEDICAID, SELFPAY ==
--- NOTE | ~2024-05-23 | CT_ITS ---
EXAMINATION: CT ABDOMEN AND PELVIS WITH CONTRAST CLINICAL INFORMATION: Unexplained weight loss. COMPARISON: CT dated April 29, 2017. TECHNIQUE: Multidetector volumetric images were obtained from the superior aspect of the liver through the pubic symphysis following administration 85 mL of Omnipaque 350 intravenous contrast. Sagittal and coronal reformatted images were obtained on the technologist's workstation. Oral contrast: [address] examination was performed using dose optimization techniques as appropriate, variously including the following: *Automated exposure control *Adjustment of mA and/or kV according to patient size (this includes techniques or standardized protocols for targeted exams where dose is matched to indication/reason for exam; i.e. extremities or head) *Use of iterative reconstruction technique DLP: 140 mGy-cm FINDINGS: Submitted for interpretation on July 18, 2024. Limited by patient's breathing motion artifact. LUNG BASES: Pulmonary patchy groundglass, left lung base. LIVER, GALLBLADDER, AND BILIARY TREE: Liver measures 14 cm. No focal mass. Portal vein, hepatic veins and intrahepatic portion of the IVC are patent. No intrahepatic biliary ductal dilatation. Fluid-filled gallbladder without pericholecystic fluid collection or gallbladder wall thickening. Common bile duct measures 4 mm. PANCREAS: No focal mass. Volume loss. No peripancreatic fluid collection. No main pancreatic ductal dilatation. SPLEEN: Absent/splenectomy. ADRENAL GLANDS: No nodular lesions. KIDNEYS AND URETERS: No renal mass. No hydronephrosis. 1 cm cyst at the corticomedullary junction lower pole left kidney. Normal enhancement of the renal cortex. BLADDER: Fluid-filled. GASTROINTESTINAL TRACT: Sutures and postsurgical changes at the distal esophagus/small bowel loops/absent stomach with questionable thickened wall versus poor distention. No oral contrast within the lumen at the surgical site. There is oral contrast in the lumen proximal and distal to the suture site/anastomosis. No extraluminal/leak of the oral contrast. The oral contrast reaches the large intestine. No intestinal obstruction pattern. No ascites. No pneumoperitoneum. No pneumatosis intestinalis. Abundant stool within the lumen of the large intestine. 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 There is a hyperdense/calcified structure beneath the anterior inferior rib cage, unchanged. Radiopaque structure in the left lateral [peritoneal cavity just lateral to the splenic colonic flexure. LYMPH NODES: No gross lymphadenopathy. VASCULAR: No aneurysm or dissection, abdominal aorta. Calcified plaques abdominal aorta wall and the origin of the mesenteric arteries. Calcified plaque in the origin of the left main renal artery. PELVIC VISCERA: Prostate gland is not enlarged. OSSEOUS STRUCTURES: Multilevel spondylosis more conspicuous at L5-S1 resulting in bilateral neuroforamina stenosis. No gross lytic or blastic lesions. Likely bony island Left femoral head. CT/CT abdomen pelvis w IV con IMPRESSION: No gross mass or lymphadenopathy. 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 Fleischner guidelines were followed. Electronically signed by: Cal Benson MD 07/18/2024 02:10 PM RAYO
[2024-05-23] MEDS: iohexoL 350 MG/ML 100 ML INFUS..BTL 85 ML IV (09:52)
[2024-05-23 16:51] LABS: Creatinine POC 0.6 mg/dL (0.5-1.4); GFR POC > 60
== END 2024-05-23 07:24 | disposition home or self-care (01) ==
LOC: HO.CT 07:23
PROVIDERS: PCP Internal Medicine; Visit Provider Internal Medicine
DX: R63.4 Abnormal weight loss (principal)
CPT/HCPCS: 74177; 82565; Q9967

== ENCOUNTER → 2024-05-23 07:28 | Outpatient (BNV) | payer MEDICARE, MEDICAID, SELFPAY | PROVIDERS: PCP Internal Medicine; Visit Provider Radiology Diagnostic Radiology | DX: R63.4 Abnormal weight loss (principal) | CPT/HCPCS: 74177 ==

== ENCOUNTER 2025-02-25 16:18 | Outpatient (REF) | payer MEDICARE, MEDICAID, SELFPAY ==
--- OUTSIDE RECORDS SUMMARY | 2025-02-25 15:00 | XMS_ITS | Encounter Summary ---
Author Organization [employer] Address [address] [place] [address] Care Team Providers Care Decorating Consultant Name Role Phone Luis Carlos Achayra MD Primary Care Provide r Reason for Visit * Reason Comments Follow-up Weight Check Encounter Details Date Type Department Care Team (Latest Contact Info) Description 02/25/2025 3:00 PM EDT Office Visit [facility] [address], [place] [phone] Luis Carlos Acharya MD [address], [place] [phone] Mixed hyperlipidemia (Primary Dx); Iron deficiency anemia, unspecified iron deficiency anemia type; Flatulence; Weight loss; Encounter for immunization; Preventative health care Social History Tobacco Use Types Packs/Day Years Used Date Smoking Tobacco: Never Smokeless Tobacco: Never Depression Answer Date Recorded Patient Health Questionnaire-9 Score 4 02/25/2025 Patient Health Questionnaire-9 Score 4 02/25/2025 Last PHQ-9: Questionnaire Data Not on file 0 02/25/2025 Housing Stability Answer Date Recorded What is your housing situation today? I have mitali coats 11/26/[address] you li ve. Do you have problems with any of the following? None of the above 11/26/2024 Food Insecurity Answer Date Recorded Within the past 12 months, y ou worried that your food would run out before you got money to buy more: Never True 11/26/2024 Within the past 12 months,th e food you bought just didn't last and you didn't have enough money to get more: Never True Transportation Answer Date Recorded In the past 12 months, has l ack of transportation kept you from medical appts, meetings, work or from getting things needed for daily living? No 11/26/2024 Utilities Answer Date Recorded In the past 12 months, has t he electric, gas, oil or water company threatened to shut off services in your home? No 11/26/2024 Depression Answer Date Recorded Patient Health Questionnaire-2 Score 0 02/25/2025 Internet Access Answer Date Recorded Internet Access Q1 Yes 11/26/2024 Internet Access Q2 Not on file 11/26/2024 Sex and Gender Information Value Date Recorded Sex Assigned at Male 06/06/2022 10:14 AM EDT Legal Sex Male 10:14 AM EDT Gender Identity Male 06/06/2022 10:14 AM EDT Sexual Orientation Straight 11/26/2024 1: 42 PM EDT documented as of this encounter Last Filed Vital Signs Vital Sign Reading Time Taken Comments Blood Pressure 115/70 02/25/2025 2:59 PM EDT Pulse 89 02/25/2025 2:59 PM EDT Temperature 36.7 C (98.1 F) 02/25/2025 2:59 PM EDT Respiratory Rate 18 02/25/2025 2:59 PM EDT Oxygen Saturation - - Inhaled Oxygen Concentration - - Weight 41.5 kg (91 lb 6.4 oz) 02/25/2025 2:59 PM EDT Height 149.9 cm (4' 11 ) 02/25/2025 2:59 PM EDT Body Mass Index 18.46 02/25/2025 2:59 PM EDT documented in this encounter Functional Status * Over the past 2 weeks, how often have you been bothered by any of the following problems? Question Answer Date of Assessment Author Patient Health Questionnaire-2 Score 0 02/05 3:09 PM EDT Flor Evans [place] * Little interest or pleasure in doing things Answer Date of Assessment Author Not at all 02/25/2025 3:09 PM EDT Abad Evans [place] * Feeling down, depressed, or hopeless Answer Date of Assessment Author Not at all 02/25/2025 3:09 PM Abad Abdi [place] * Trouble falling or staying asleep, or sleeping too much Answer Date of Assessment Author More than half the days 02/25/2025 3:09 PM STALINT Flor Dial MA * Feeling tired or having little energy Answer Date of Assessment Author Not at all 02/25/2025 3:09 PM Abad Abdi [place] * Poor appetite or overeating Answer Date of Assessment Author Several days 02/25/2025 3:09 PM STALINT Abad Evans [place] * Feeling bad about yourself - or that you are a failure or have let yourself or your family down Answer Date of Assessment Author Not at all 02/25/2025 3:09 PM Abad Abdi [place] * Trouble concentrating on things, such as reading the newspaper or watching television Answer Date of Assessment Author Several days 02/25/2025 3:09 PM Abad Abdi MA * Moving or speaking so slowly that other people could have noticed? Or the opposite - being so fidgety or restless that you have been moving around a lot more than usual. Answer Date of Assessment Author Not at all 02/25/2025 3:09 PM Abad Abdi MA * Thoughts that you would be better off or hurting yourself in some way Answer Date of Assessment Author Not at all 02/25/2025 3:09 PM Abad Abdi MA * Patient Health Questionnaire-9 Score Answer Date of Assessment Author 4 02/25/2025 3:09 PM Abad Abdi MA * How difficult have these problems made it for you to do your work, take care of things at home, or get along with other people? Answer Date of Assessment Author Not difficult at all 02/25/2025 3:09 PM Flor Jasmine MA * Over the last 2 weeks, how often have you been bothered by any of the following problems? Question Answer Date of Assessment Author Feeling nervous, anxious, or on edge 3 02/05 3:10 PM Flor Abdi MA Not being able to stop or co ntrol worrying 3 02/25/2025 3:10 PM EDT Flor Evans MA Worrying too much about diff erent things 3 02/25/2025 3:10 PM EDT Flor Evans [place] Trouble relaxing 2 02/25/2025 3:10 PM EDT Flor Dial MA Being so restless that it is hard to sit still 2 02/25/2025 3:10 PM EDT Flor Evans MA Becoming easily annoyed or irritable 3 02/05 3:10 PM EDT Flor Evans MA Feeling afraid as if somethi ng awful might happen 1 02/25/2025 3:10 PM EDT Flor Evans MA TUSHAR-7 Total Score 17 02/25/2025 3:10 PM EDT Flor Evans MA documented as of this encounter Progress Notes * Luis Carlos Garay MD - 02/25/2025 3:00 PM EDT Images from the original note were not included. SUBJECTIVE Eliseo Lim is a 59 y.o. male who presents for Follow-up and Weight Check. Patient is here for a follow up Review of Systems Constitutional: Negative for fever. HENT: Negative for sore throat. Respiratory: Negative for cough and shortness of breath. Cardiovascular: Negative for chest pain. Gastrointestinal: Negative for abdominal pain. Neurological: Negative for headaches. Allergies[1] OBJECTIVE Vitals: 02/25/25 1459 BP: 115/70 BP Location: Left arm Patient Position: Sitting BP Cuff Size: Adult Pulse: 89 Resp: 18 Temp: 98.1 ??F (36.7 ??C) TempSrc: Temporal Weight: 91 lb 6.4 oz (41.5 kg) Height: 4' 11 (1.499 m) Physical Exam Vitals reviewed. Constitutional: Appearance: Normal appearance. HENT: Head: Normocephalic and atraumatic. Right Ear: External ear normal. Left Ear: External ear normal. Nose: Nose normal. Mouth/Throat: Mouth: Mucous membranes are moist. Eyes: Conjunctiva/sclera: Conjunctivae normal. Cardiovascular: Rate and Rhythm: Normal rate and regular rhythm. Pulmonary: Effort: Pulmonary effort is normal. Breath sounds: Normal breath sounds. Skin: General: Skin is warm. Neurological: Mental Status: He is alert. Mental status is at baseline. Assessment/Plan Problem List Items Addressed This Visit Hyperlipidemia - Primary Patient is here for a f/u Most recent lipid profile from: 06/21/2022 shows a total cholesterol of: 183 triglycerides of: 94 HDL of: 65 and LDL of: 99 Will repeat Lipid profile For now will continue with current regimen. Not on statin Used to be on Pravastatin in the past advised to try to adhere to a low cholesterol diet, counseled and educated about diet and exercise,Patient encouraged to come up with a personal goal for weight loss. The 10-year ASCVD risk score (Tim GALEANA, et al., 2019) is: 5.5% Values used to calculate the score: Age: 59 years Sex: Male Is Non- : No Diabetic: No Tobacco smoker: No Systolic Blood Pressure: 115 mmHg Is BP treated: No HDL Cholesterol: 65 mg/dL Total Cholesterol: 183 mg/dL Relevant Orders Lipid Panel, Standard Comprehensive Metabolic Panel Iron deficiency anemia Relevant Orders CBC auto differential Weight loss Pt has regained some of the weight he had lost Initial work up included: Chest x-ray: No acute intrathoracic disease. Chronic changes left lung base. PSA, TSH, CMP 11/23/2023 Normal CBC showed mild anemia B12, Folate, SPEP, Iron studies, Ferritin unremarkable CT Of Abdomen and Pelvis 04/04/2025 to rule pancreatic malignancy showed: No gross mass or lymphadenopathy. 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 Preventative health care PSA Normal 11/23/2023 will repeat Colonoscopy: 09/13/2006 Dr. 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 [1] No Known Allergies documented in this encounter Miscellaneous Notes * Assessment & Plan Note - Luis Carlos Garay MD - 02/25/2025 4:12 PM EDT Associated Problem(s): Preventative health care PSA Normal 11/23/2023 will repeat Colonoscopy: 09/13/2006 Dr. 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 Pt has regained some of the weight he had lost Initial work up included: Chest x-ray: No acute intrathoracic disease. Chronic changes left lung base. PSA, TSH, CMP 11/23/2023 Normal CBC showed mild anemia B12, Folate, SPEP, Iron studies, Ferritin unremarkable CT Of Abdomen and Pelvis 04/04/2025 to rule pancreatic malignancy showed: No gross mass or lymphadenopathy. 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 * Assessment & Plan Note - Luis Carlos Garay MD - 02/25/2025 3:54 PM EDT Associated Problem(s): Hyperlipidemia Patient is here for a f/u Most recent lipid profile from: 06/21/2022 shows a total cholesterol of: 183 triglycerides of: 94 HDL of: 65 and LDL of: 99 Will repeat Lipid profile For now will continue with current regimen. Not on statin Used to be on Pravastatin in the past advised to try to adhere to a low cholesterol diet, counseled and educated about diet and exercise,Patient encouraged to come up with a personal goal for weight loss. The 10-year ASCVD risk score (Tim GALEANA, et al., 2019) is: 5.5% Values used to calculate the score: Age: 59 years Sex: Male Is Non- : No Diabetic: No Tobacco smoker: No Systolic Blood Pressure: 115 mmHg Is BP treated: No HDL Cholesterol: 65 mg/dL Total Cholesterol: 183 mg/dL documented in this encounter Plan of Treatment Scheduled Orders Name Type Priority Associated Diagnoses Orde r Schedule Lipid Panel, Standard Lab Routine Mixed hyperlipidemia Ordered: 02/25/2025 CBC auto differential Lab Routine Iron deficiency anemia, unspecified iron deficiency anemia type Expected: 02/25/2025 (Approximate), Expires: 02/25/2026 Comprehensive Metabolic Panel Lab Routine Mixed hyperlipidemia Ordered: 02/25/2025 PSA, Screen Lab Routine Preventative health care Ordered: 02/25/2025 documented as of this encounter Visit Diagnoses Diagnosis Mixed hyperlipidemia- Primary Iron deficiency anemia, unspecified iron deficiency anemia type Flatulence Flatulence, eructation, and gas pain Weight loss Loss of weight Encounter for immunization Preventative health care Routine general medical examination at a health care facility documented in this encounter Additional Health Concerns Assessment Noted Time PHQ-9 Depression Total Score: 4 02/26/20 25 3:09 PM EDT documented as of this encounter Care Teams Decorating Consultant Relationship Specialty Start Date End Date Luis Carlos Acharya MD [address] [place] [address] PCP - General Internal Medicine 04/04/14 documented as of this encounter
--- OUTSIDE RECORDS SUMMARY | 2025-02-25 16:44 | XMS_ITS | Patient Health Record ---
Author Organization [facility] Address [address] [place] [id number] Care Team Providers Care Manager Medical Writing Name Role Phone Chintan Ricks Jr [phone] Reason For Referral No Information Plan Of Treatment No Information
[2025-02-25 18:07] LABS: MANUAL DIFF FLAG NO
[2025-02-25 18:18] LABS: Hematocrit 38.3 % (42.0-52.0); Hemoglobin 12.3 g/dl (14.0-18.0); Imm Gran Abs Auto 0.03 X10*3/uL (0.00-0.03); Imm Gran Pct Auto 0.3 % (0.0-0.4); Lymphocytes Absolute Auto 2.1 X10*3/uL (1.2-4.9); Mean Corpuscular HGB Conc 32.1 g/dl (31.0-36.0); Mean Corpuscular Hemoglobin 31.9 pg (27.0-33.0); Mean Corpuscular Volume 99.2 fL (80.0-98.0); NRBC Abs Auto 0.000 X10*3/uL (0.0-0.012); NRBC Pct Auto 0.0 /100WBC (0.0-0.2); Platelet Count 260 X10*3/uL (160-400); Red Blood Count 3.86 X10*6/uL (4.60-5.80); White Blood Count 9.2 X10*3/uL (4.8-10.8)
[2025-02-25 18:33] LABS: Alanine Aminotransferase 53 U/L (0-40); Albumin Level 4.3 g/dL (3.5-5.0); Alkaline Phosphatase 97 U/L (39-117); Anion Gap 14 (12-20); Aspartate Amino Transferase 48 U/L (5-37); Blood Urea Nitrogen 20 mg/dL (9-16); Calcium 8.8 mg/dL (8.4-10.2); Carbon Dioxide 31 mmol/L (22-29); Chloride 104 mmol/L (96-108); Cholesterol 173 mg/dL (<200); Estimated Glomerular Filt Rate > 60; HDL Cholesterol 61 mg/dL (>40); Potassium 4.4 mmol/L (3.3-5.1); Sodium 145 mmol/L (135-145); Total Protein 7.1 g/dL (6.5-8.0); Triglycerides 70 mg/dL (<150)
== END 2025-02-25 16:19 | disposition home or self-care (01) ==
LOC: HO.HHCL 16:18
PROVIDERS: PCP Internal Medicine; Visit Provider Internal Medicine
DX: Z00.00 Encounter for general adult medical examination without abnormal findings (principal); Z12.5 Encounter for screening for malignant neoplasm of prostate; E78.2 Mixed hyperlipidemia; D50.9 Iron deficiency anemia, unspecified
CPT/HCPCS: 36415; 80053; 80061; 84153; 85025